=== PATIENT | male | born 1970 | race Caucasian/White ===

== ENCOUNTER 2018-05-07 20:36 | Inpatient (IN) | payer MEDICAID ==
[2018-05-07] MEDS: CEFTRIAXONE 1 GM/50 ML (PMX) 50 ML IVPB (21:17)
[2018-05-07] MEDS: IBUPROFEN 600 MG TAB PO ×2 (21:18→22:03)
[2018-05-07] MEDS: ONDANSETRON 4 MG INJ IV (21:18)
[2018-05-07] MEDS: HYDROmorphONE 1 MG/ML SYG IV (21:18)
[2018-05-07] MEDS: SODIUM CHLORIDE 0.9% 1L BAG IV* (21:20)
[2018-05-07] MEDS: SOD CHLORIDE 0.9% 1,000 ML IV (21:21)
[2018-05-07 21:48] LABS: ADD MAN DIFF? NO
[2018-05-07 21:52] LABS: BASOPHILS % 0.2 % (0.0-2.0); EOSINOPHILS % 0.1 % (0.0-7.0); HEMATOCRIT 40.2 % (42.0-52.0); HEMOGLOBIN 13.9 g/dl (14.0-18.0); LYMPHOCYTES # 1.1 10^3/ul (0.8-2.9); MEAN CORPUSCULAR HEMOGLOBIN 31.4 pg (29.0-33.0); MEAN CORPUSCULAR HGB CONC 34.6 g/dl (32.0-37.0); MEAN CORPUSCULAR VOLUME 90.7 fl (82.0-101.0); MEAN PLATELET VOLUME 9.8 fl (7.4-10.4); MONOCYTES % 9.7 % (0.0-11.0); NEUTROPHIL # 8.2 10^3/ul (1.6-7.5); NEUTROPHILS % 78.7 % (39.0-77.0); PLATELET COUNT 177 10^3/UL (140-415); RED BLOOD COUNT 4.43 10^6/ul (4.70-6.10); RED CELL DISTRIBUTION WIDTH 11.9 % (11.5-14.5)
[2018-05-07 21:52] LABS: WHITE BLOOD COUNT 10.4 10^3/ul (4.8-10.8)
[2018-05-07 22:11] LABS: PROTIME 14.4 Sec (11.9-14.9); PT RATIO 1.1
[2018-05-07 22:12] LABS: PARTIAL THROMBOPLASTIN TIME 30.2 Sec (25.0-35.0)
[2018-05-07 22:14] LABS: ALANINE AMINOTRANSFERASE 23 IU/L (13-69); ALBUMIN 3.5 g/dl (3.3-4.9); ALBUMIN/GLOBULIN RATIO 1.16; ALKALINE PHOSPHATASE 81 IU/L (42-121); ANION GAP 11 (8-16); ASPARTATE AMINO TRANSFERASE 13 IU/L (15-46); BILIRUBIN,INDIRECT 0.3 mg/dl (0-1.1); BILIRUBIN,TOTAL 0.3 mg/dl (0.2-1.3); BLOOD UREA NITROGEN 17 mg/dl (7-20); CALCIUM 8.3 mg/dl (8.4-10.2); CARBON DIOXIDE 26 mmol/L (21-31); CHLORIDE 107 mmol/L (97-110); CREATININE 0.97 mg/dl (0.61-1.24); GLUCOSE 117 mg/dl (70-220); LIPASE 30 U/L (23-300); POTASSIUM 3.9 mmol/L (3.5-5.1); SODIUM 140 mmol/L (135-144); TOTAL PROTEIN 6.5 g/dl (6.1-8.1)
[2018-05-07 22:15] LABS: LACTIC ACID 1.2 mmol/L (0.5-2.0)
[2018-05-07 22:21] LABS: ADD UMIC YES; UR ASCORBIC ACID NEGATIVE (NEGATIVE); UR BILIRUBIN (Dip) NEGATIVE (NEGATIVE); UR BLOOD (Dip) 1+ mg/dL (NEGATIVE); UR CLARITY SLIGHTLY CLOUDY (CLEAR); UR COLOR YELLOW (YELLOW); UR GLUCOSE (Dip) NEGATIVE (NEGATIVE); UR KETONES (Dip) NEGATIVE (NEGATIVE); UR LEUKOCYTE ESTERASE (Dip) 1+ Leu/ul (NEGATIVE); UR MUCUS FEW /HPF (NONE SEEN); UR NITRITE (Dip) NEGATIVE (NEGATIVE); UR NONSQUAMOUS EPITHELIAL CELL 2 /HPF (NONE SEEN); UR RBC 34 /HPF (0-5); UR SPECIFIC GRAVITY (Dip) 1.027 (1.003-1.030); UR TOTAL PROTEIN (Dip) 2+ mg/dl (NEGATIVE); UR UROBILINOGEN (Dip) 1+ mg/dL (NEGATIVE); UR WBC 56 /HPF (0-5)
[2018-05-07] MEDS ORDERED: NACL 0.9% 3 ML SYG IV (23:30)
[2018-05-07] MEDS: LEVOFLOXACIN 750MG/D5W (PMX) 150 ML IVPB (23:36)
[2018-05-08] MEDS: SOD CHLORIDE 0.9% 1,000 ML IV ×4 (00:23→23:16)
[2018-05-08] MEDS: LEVOFLOXACIN 750MG/D5W (PMX) 150 ML IVPB (00:25)
[2018-05-08] MEDS ORDERED: LORAZEPAM 2 MG INJ IV (05:00)
[2018-05-08] MEDS: ONDANSETRON 4 MG INJ IV ×2 (05:11→13:18)
[2018-05-08] MEDS: morphine 2 MG INJ IV (05:12)
[2018-05-08 06:09] LABS: ADD MAN DIFF? NO
[2018-05-08 06:59] LABS: WHITE BLOOD COUNT 12.6 10^3/ul (4.8-10.8)
[2018-05-08 06:59] LABS: BASOPHILS % 0.2 % (0.0-2.0); HEMATOCRIT 38.7 % (42.0-52.0); HEMOGLOBIN 13.1 g/dl (14.0-18.0); LYMPHOCYTES # 0.9 10^3/ul (0.8-2.9); LYMPHOCYTES % 7.5 % (15.0-51.0); MEAN CORPUSCULAR HEMOGLOBIN 32.2 pg (29.0-33.0); MEAN CORPUSCULAR HGB CONC 33.9 g/dl (32.0-37.0); MEAN CORPUSCULAR VOLUME 95.1 fl (82.0-101.0); MEAN PLATELET VOLUME 10.1 fl (7.4-10.4); MONOCYTE # 1.2 10^3/ul (0.3-0.9); MONOCYTES % 9.4 % (0.0-11.0); NEUTROPHIL # 10.4 10^3/ul (1.6-7.5); NEUTROPHILS % 82.7 % (39.0-77.0); PLATELET COUNT 180 10^3/UL (140-415); RED BLOOD COUNT 4.07 10^6/ul (4.70-6.10)
[2018-05-08 07:12] LABS: ALANINE AMINOTRANSFERASE 20 IU/L (13-69); ALBUMIN 3.1 g/dl (3.3-4.9); ALKALINE PHOSPHATASE 69 IU/L (42-121); ANION GAP 8 (8-16); ASPARTATE AMINO TRANSFERASE 18 IU/L (15-46); BILIRUBIN,INDIRECT 0.2 mg/dl (0-1.1); BILIRUBIN,TOTAL 0.2 mg/dl (0.2-1.3); BLOOD UREA NITROGEN 12 mg/dl (7-20); CALCIUM 7.7 mg/dl (8.4-10.2); CARBON DIOXIDE 25 mmol/L (21-31); CHLORIDE 110 mmol/L (97-110); CHOL/HDL RATIO 2.5 RATIO; CHOLESTEROL 123 mg/dl (100-200); CREATININE 0.91 mg/dl (0.61-1.24); GLUCOSE 111 mg/dl (70-220); HDL CHOLESTEROL 49 mg/dl (27-67); LDL CHOLESTEROL,CALCULATED 58 mg/dl; MAGNESIUM 1.8 mg/dl (1.7-2.5); POTASSIUM 4.1 mmol/L (3.5-5.1); SODIUM 139 mmol/L (135-144); TOTAL PROTEIN 5.9 g/dl (6.1-8.1); TRIGLYCERIDES 80 mg/dl (0-149)
[2018-05-08 07:18] LABS: ETHANOL < 10.0 mg/dl
[2018-05-08 07:42] LABS: THYROID STIMULATING HORMONE 0.551 MIU/L (0.465-4.680)
[2018-05-08] MEDS: ACETAMINOPHEN 325 MG TAB PO (07:54)
[2018-05-08 08:04] LABS: HEMOGLOBIN A1C 5.6 % (0-5.9)
[2018-05-08] MEDS: MULTIVITAMINS 10 ML, THIAMINE 100 MG, FOLIC ACID 1 MG in SOD CHLORIDE 0.9% 1,000 ML IVPB (10:05)
[2018-05-08] MEDS: HYDROCODONE/APAP (5/325) TAB PO ×2 (13:14→19:56)
[2018-05-08] MEDS: TAMSULOSIN (SR) 0.4 MG CAP PO (20:40)
[2018-05-09] MEDS: HYDROCODONE/APAP (5/325) TAB PO ×2 (07:12→18:47)
[2018-05-09] MEDS: MULTIVITAMINS 10 ML, THIAMINE 100 MG, FOLIC ACID 1 MG in SOD CHLORIDE 0.9% 1,000 ML IVPB (08:56)
[2018-05-09] MEDS: SOD CHLORIDE 0.9% 1,000 ML IV ×2 (12:31→18:36)
[2018-05-09] MEDS: morphine LIQ (10 MG/5 ML) CUP PO (15:57)
[2018-05-09] MEDS: TAMSULOSIN (SR) 0.4 MG CAP PO (20:20)
[2018-05-09] MEDS: LEVOFLOXACIN 750MG/D5W (PMX) 150 ML IVPB (23:19)
[2018-05-09] MEDS: ACETAMINOPHEN 325 MG TAB PO (23:22)
[2018-05-10] MEDS: SOD CHLORIDE 0.9% 1,000 ML IV (00:33)
[2018-05-10 05:43] LABS: ADD MAN DIFF? NO
[2018-05-10 05:49] LABS: WHITE BLOOD COUNT 7.7 10^3/ul (4.8-10.8)
[2018-05-10 05:49] LABS: BASOPHILS % 0.3 % (0.0-2.0); EOSINOPHILS % 0.4 % (0.0-7.0); HEMATOCRIT 35.3 % (42.0-52.0); HEMOGLOBIN 12.2 g/dl (14.0-18.0); LYMPHOCYTES # 1.7 10^3/ul (0.8-2.9); LYMPHOCYTES % 21.7 % (15.0-51.0); MEAN CORPUSCULAR HEMOGLOBIN 31.8 pg (29.0-33.0); MEAN CORPUSCULAR HGB CONC 34.6 g/dl (32.0-37.0); MEAN CORPUSCULAR VOLUME 91.9 fl (82.0-101.0); MONOCYTE # 0.7 10^3/ul (0.3-0.9); MONOCYTES % 8.7 % (0.0-11.0); NEUTROPHIL # 5.3 10^3/ul (1.6-7.5); NEUTROPHILS % 68.8 % (39.0-77.0); PLATELET COUNT 202 10^3/UL (140-415); RED BLOOD COUNT 3.84 10^6/ul (4.70-6.10); RED CELL DISTRIBUTION WIDTH 11.8 % (11.5-14.5)
[2018-05-10 06:24] LABS: ANION GAP 8 (8-16); BLOOD UREA NITROGEN 5 mg/dl (7-20); CALCIUM 8.1 mg/dl (8.4-10.2); CARBON DIOXIDE 28 mmol/L (21-31); CHLORIDE 109 mmol/L (97-110); CREATININE 0.78 mg/dl (0.61-1.24); GLUCOSE 103 mg/dl (70-220); MAGNESIUM 2.2 mg/dl (1.7-2.5); PHOSPHORUS 3.9 mg/dl (2.5-4.9); POTASSIUM 3.7 mmol/L (3.5-5.1); SODIUM 141 mmol/L (135-144)
[2018-05-10] MEDS: MULTIVITAMINS 10 ML, THIAMINE 100 MG, FOLIC ACID 1 MG in SOD CHLORIDE 0.9% 1,000 ML IVPB (08:54)
[2018-05-10] MEDS: TAMSULOSIN (SR) 0.4 MG CAP PO (20:55)
[2018-05-10] MEDS: HYDROCODONE/APAP (5/325) TAB PO (20:56)
[2018-05-10] MEDS: LEVOFLOXACIN 750MG/D5W (PMX) 150 ML IVPB (23:17)
[2018-05-11 06:27] LABS: ADD MAN DIFF? NO
[2018-05-11 06:29] LABS: BASOPHILS % 0.3 % (0.0-2.0); EOSINOPHILS # 0.1 10^3/ul (0.0-0.5); EOSINOPHILS % 0.8 % (0.0-7.0); HEMATOCRIT 36.5 % (42.0-52.0); HEMOGLOBIN 12.8 g/dl (14.0-18.0); LYMPHOCYTES # 1.5 10^3/ul (0.8-2.9); LYMPHOCYTES % 23.6 % (15.0-51.0); MEAN CORPUSCULAR HEMOGLOBIN 31.6 pg (29.0-33.0); MEAN CORPUSCULAR HGB CONC 35.1 g/dl (32.0-37.0); MEAN CORPUSCULAR VOLUME 90.1 fl (82.0-101.0); MEAN PLATELET VOLUME 9.9 fl (7.4-10.4); MONOCYTE # 0.8 10^3/ul (0.3-0.9); MONOCYTES % 12.8 % (0.0-11.0); NEUTROPHIL # 3.9 10^3/ul (1.6-7.5); NEUTROPHILS % 62.3 % (39.0-77.0); PLATELET COUNT 245 10^3/UL (140-415); RED BLOOD COUNT 4.05 10^6/ul (4.70-6.10); RED CELL DISTRIBUTION WIDTH 11.7 % (11.5-14.5)
[2018-05-11 06:29] LABS: WHITE BLOOD COUNT 6.2 10^3/ul (4.8-10.8)
[2018-05-11 07:17] LABS: ANISOCYTOSIS 2+ (0-0); BAND NEUTROPHILS #M 0.4 10^3/ul (0.0-0.6); BAND NEUTROPHILS % (M) 8 % (0-4); BASOPHIL #M 0.1 10^3/ul (0.0-0.0); BASOPHILS % (M) 2 % (0-2); EOSINOPHILS % (M) 3 % (0-7); LYMPHOCYTES #M 2.4 10^3/ul (0.8-2.9); LYMPHOCYTES % (M) 40 % (15-51); MICROCYTOSIS 2+ (0-0); MONOCYTE #M 0.2 10^3/ul (0.3-0.9); MONOCYTES % (M) 4 % (0-11); PLATELET ESTIMATE NORMAL; SEG NEUT #M 2.7 10^3/ul (1.6-7.5); SEGMENTED NEUTROPHILS (M) % 43 % (39-77)
[2018-05-11 07:19] LABS: ANION GAP 12 (8-16); BLOOD UREA NITROGEN 9 mg/dl (7-20); CALCIUM 8.7 mg/dl (8.4-10.2); CARBON DIOXIDE 25 mmol/L (21-31); CHLORIDE 107 mmol/L (97-110); CREATININE 0.79 mg/dl (0.61-1.24); GLUCOSE 104 mg/dl (70-220); MAGNESIUM 2.2 mg/dl (1.7-2.5); PHOSPHORUS 4.5 mg/dl (2.5-4.9); POTASSIUM 3.7 mmol/L (3.5-5.1); SODIUM 140 mmol/L (135-144)
[2018-05-12] MEDS ORDERED: LEVOFLOXACIN 750 MG TABLET PO ×2 (06:00)
== END 2018-05-11 13:40 | disposition home or self-care (01) | DRG 872 ==
LOC: E/R 20:36 → MS2 23:59
DX: A41.9 Sepsis, unspecified organism (principal); N10 Acute pyelonephritis; N13.30 Unspecified hydronephrosis; F10.20 Alcohol dependence, uncomplicated; F17.200 Nicotine dependence, unspecified, uncomplicated; E66.9 Obesity, unspecified; Z68.30 Body mass index [BMI] 30.0-30.9, adult; K57.30 Diverticulosis of large intestine without perforation or abscess without bleeding; K42.9 Umbilical hernia without obstruction or gangrene; K82.4 Cholesterolosis of gallbladder
CPT/HCPCS: 36415; 74176; 76705; 76775; 80048; 80053; 80061; 80307; 81001; 83036; 83605; 83690; 83735; 84100; 84443; 85025; 85610; 85730; 87040; 87086; 96374; 96375; 99285-25